=== PATIENT | male | born 1955 | race Caucasian/White ===

== ENCOUNTER → 2019-07-30 | Outpatient (CLI) | payer OTHER | LOC: GMAJ 14:29 | PROVIDERS: ATTEND Family Medicine | DX: M25.559 Pain in unspecified hip (principal) ==

== ENCOUNTER → 2019-10-06 | Outpatient (CLI) | payer MEDICARE, OTHER ==
--- NOTE | 2019-10-07 11:16 | MRI ---
EXAM DESCRIPTION: Cervical Spine: MRI. CLINICAL HISTORY: 63 years Male CERVICAL RADICULOPATHY COMPARISON: None. TECHNIQUE: Multiplanar, high-field MRI, multiple sequences, non-contrast Cervical spine. FINDINGS: C3-C4: Disc desiccation and moderate disc space loss. Minimal anterior and posterior bulging, touching the anterior cord. Bilateral uncinate spurs. Mild bilateral facet arthrosis. Moderate right neural foraminal narrowing and left neural foraminal stenosis. C4-C5: Disc desiccation and moderate disc space loss with anterior bulging and endplate ridging. Grade 1 retrolisthesis. Posterior disc bulge not touching the cord. Bilateral uncinate spurs. Posterior ligament thickening. Moderate left neural foraminal narrowing and right neural foraminal stenosis. Moderate canal narrowing. Bilateral facets are unremarkable. C5-C6: Disc desiccation with disc space maintained. 2 mm anterolisthesis. Bilateral mild neural foraminal narrowing. Facet joints unremarkable. Mild canal narrowing. C6-C7: Disc desiccation anterior bulging and endplate ridging. Anterior more than posterior disc space narrowing. Posterior left paracentral disc protrusion impressing on the left ventral cord. Abutting the left C7 nerve. Bilateral small uncinate spurs. Mild right neural foraminal narrowing moderate on the left. Facet joints negative. T1-T2: Disc desiccation and minimal disc space loss. Endplate reactive changes to the left of midline. Posterior broad-based disc bulge but not touching the cord. Bilateral mild facet arthrosis. Mild bilateral neural foraminal narrowing. Normal signal in the C2-C3 and C7-T1 discs with no bulging. Disc spaces preserved. Canal and neural foramina are patent. Facet joints negative. Spinal alignment kyphosis at C5-6-7.. No cord compression or cord edema. Atlantoaxial joint mild arthrosis.. Base of the cerebellar tonsils is above the foramen magnum. Paravertebral soft tissues negative. Vertebral bodies are not compressed at any level. Otherwise normal marrow signal in the remaining vertebral bodies and the posterior elements. Posterior disc bulging at T2-T3 and T3-T4 with disc space loss. IMPRESSION: 1. Multiple levels of disc desiccation and disc space loss. Anterolisthesis and posterior listhesis. Hypertrophic facet arthrosis at multiple levels. 2. Moderate right neural foraminal narrowing at C3-C4. 3. Grade 1 retrolisthesis C4-C5. Right neural foraminal stenosis. Posterior disc bulge. Correlate for right C5 radiculopathy. 4. posterior left paracentral C6-C7 disc protrusion impressing on the left ventral cord and abutting the left C7 nerve. Moderate left neural foraminal narrowing. Electronically signed by: Mk Ballard MD 10/07/2019 11:15 AM [facility]
== END | disposition home or self-care (01) ==
LOC: MRI 11:09
PROVIDERS: ATTEND Neurological Surgery
DX: M54.12 Radiculopathy, cervical region (principal)

== ENCOUNTER → 2019-10-08 | Outpatient (CLI) | payer MEDICARE, OTHER ==
--- NOTE | 2019-10-08 09:50 | MRI ---
EXAM DESCRIPTION: Lumbar Spine w/o Contrast : Magnetic Resonance Imaging. CLINICAL HISTORY: RADICULOPATHY COMPARISON: Cervical spine MRI 06 October 2019. TECHNIQUE: Multiplanar, multiple standard sequences, non contrast MRI, lumbar spine. FINDINGS: L5-S1: The disc is well visualized on axial T2 series 501, image 3. Disc desiccation and minimal disc space loss. Posterior midline bulge. Minimal effusion in the facet joints with ligament thickening. Bilateral shortened pedicles. AP canal diameter 8 mm. L4-L5: Moderate disc space loss with disc desiccation. Schmorl's node inferior L4. Tiny posterior midline bulge. Minimal posterior ligament thickening. Bilaterally shortened pedicles AP canal diameter 9 mm. Moderate to severe left foraminal narrowing and right neural foraminal stenosis. L3-L4: Moderate disc space loss with Schmorl's nodes in the superior and inferior endplates. Minimal anterior bulging. Tiny posterior bulging. Bilateral hypertrophic facet arthrosis and ligament thickening more on the left. Bilateral shortened pedicles. AP canal diameter 1 cm. Moderate right foraminal narrowing and left foraminal stenosis. L2-L3: Moderate spondylosis with superior and inferior endplate irregularities and multiple Schmorl's nodes. Anterior bulging and endplate ridging. Posterior disc osteophyte bulge. Bilateral shortened pedicles. Hypertrophic facet arthrosis and ligament thickening on the left. Mild canal narrowing. Borderline left foraminal stenosis with moderate right foraminal narrowing. L1-L2: Disc desiccation and moderate disc space loss. Multiple Schmorl's nodes superior and inferior endplates. Anterior bulging with endplate ridging and no significant posterior bulging. Minimal ligament thickening. Bilaterally shortened pedicles. Moderate canal narrowing. Bilateral mild foraminal narrowing. T12-L1: Minimal disc space loss posterior with superior and inferior Schmorl's nodes. Anterior bulging and endplate ridging. No posterior bulging. Bilateral ligament thickening. Bilateral pedicle shortening. Mild canal narrowing and mild bilateral foraminal narrowing. Conus terminates at this level. L1 L4 dextroscoliosis Paravertebral soft tissues negative.. Distal cord normal signal and caliber. Otherwise normal marrow signal in the remaining vertebral bodies and the posterior elements. Vertebral bodies are not compressed at any level. IMPRESSION: 1. Multiple levels of facet hypertrophic arthrosis and flavum ligament thickening. Multiple levels of bilateral pedicular shortening which is most likely congenital. Multiple levels of spondylosis and endplate Schmorl's nodes and erosive changes. No disc herniations. 2. Multifactorial mild to moderate canal stenosis at L5-S1. Mild central canal stenosis at L4-L5 with right neural foraminal stenosis. Possible compromise right L4 nerve. 3. Borderline mild central canal stenosis at L3-L4 is multifactorial. Left foraminal stenosis which may be compromising left L3 nerve. 4. Multifactorial mild canal narrowing at L2-L3 with left foraminal stenosis and possible compromise left L2 nerve. Electronically signed by: Mk Ballard MD 10/08/2019 9:48 AM [facility]
== END | disposition home or self-care (01) ==
LOC: MRI 09:00
PROVIDERS: ATTEND Neurological Surgery
DX: M54.12 Radiculopathy, cervical region (principal)

== ENCOUNTER → 2019-12-26 | Outpatient (CLI) | payer MEDICARE, OTHER ==
--- NOTE | 2019-12-29 09:12 | RAD ---
EXAM DESCRIPTION: Cervical Spine, 2-3 Views. CR/DR/XR. CLINICAL HISTORY: 64 years Male CERVICAL RADICULOPATHY COMPARISON: MR cervical spine September 2019. TECHNIQUE: 3 views Lateral image of the entire cervical spine, AP image. Swimmer's view cervicothoracic junction. FINDINGS: Cervical type vertebra: 6 seen on the lateral view and C7 on the AP view. Disk spaces: ACDF C6-C7 but disc space not well visualized. Spondylosis C3-4 and C4-5. Endplate ridging. Facet joints: Bilateral arthrosis C3-4, C4-5, C5-6, and C6-7. Compression deformities: None. Bone Density: Minimally decreased. Alignment: Anatomic. Soft tissues: total shoulder reverse arthroplasty. IMPRESSION: ACDF C6-C7 partially visualized on the AP view not on the lateral view. Spondylosis at multiple levels as well as facet arthrosis. Electronically signed by: Mk Ballard MD 12/29/2019 9:10 AM [facility] [employer]
== END ==
LOC: RAD 12:14
PROVIDERS: ATTEND Neurological Surgery
DX: M54.12 Radiculopathy, cervical region (principal); M47.892 Other spondylosis, cervical region; M46.92 Unspecified inflammatory spondylopathy, cervical region

== ENCOUNTER → 2020-04-29 | Outpatient (CLI) | payer MEDICARE, OTHER ==
--- NOTE | 2020-04-29 14:00 | RAD ---
EXAM DESCRIPTION: Cervical Spine, 2-3 Views CLINICAL HISTORY: 64 years Male, CERVICAL RADICULOPATHY COMPARISON: December 26, 2019 FINDINGS: Two views of the cervical spine were obtained. Previous ACDF at C6-7, only partially visualized on the lateral view but without apparent hardware complication. The C7 body is not well visualized. No vertebral body fracture or acute subluxation. Degenerative disc disease at C3-4 and C4-5. The spinous processes are intact. IMPRESSION: Limited visualization of the cervical spine inferior to the C6 level with postoperative and degenerative changes but no acute cervical spine abnormality. Electronically signed by: Toño Whitfield MD 04/29/2020 1:59 PM CDT
== END ==
LOC: RAD 11:34
PROVIDERS: ATTEND Neurological Surgery
DX: M54.12 Radiculopathy, cervical region (principal); M47.892 Other spondylosis, cervical region; Z98.890 Other specified postprocedural states

== ENCOUNTER → 2020-05-31 | Outpatient (CLI) | payer MEDICARE, OTHER ==
--- NOTE | 2020-05-31 11:53 | MRI ---
EXAM DESCRIPTION: Lumbar Spine w/o Contrast : Magnetic Resonance Imaging. CLINICAL HISTORY: LUMBAR RADICULOPATHY COMPARISON: MRI lumbar spine September 2019. TECHNIQUE: Multiplanar, multiple standard sequences, non contrast MRI, lumbar spine. FINDINGS: L5-S1: The disc is well visualized on axial T2 series 501, image 3. Disc desiccation with disc space maintained. Small concavities in the endplates. Posterior midline disc bulge. Hypertrophic changes in the bilateral facet joints with effusion and posterior flavum ligament (canal elements) bilaterally shortened pedicles. AP canal diameter 8 mm. Moderate to severe right foraminal narrowing and moderate left foraminal narrowing. Stable since the prior study. L4-L5: Disc desiccation with anterior bulging and endplate spurs and mild disc space narrowing. Minimal hypertrophic changes of the canal elements. Small posterior disc bulge. Bilaterally shortened pedicles. AP canal diameter 9 mm. Mild right foraminal stenosis and moderate to severe left foraminal narrowing. No interval change. L3-L4: Disc desiccation and mild to moderate disc space loss. Central endplate concavities. Minimal anterior bulging. Posterior bulging in the midline. Trace anterolisthesis. Hypertrophic changes in the canal elements more on the left. Bilaterally shortened pedicles. AP canal diameter 10 mm. Moderate to severe right foraminal narrowing and left foraminal stenosis. No change from the prior study. L2-L3: Multiple small endplate erosions and moderate reactive changes except for the lateral right disc space. Anterior disc bulge and spurs. Tiny posterior bulge. Minimal hypertrophic changes in the canal elements. Bilateral shortened pedicles. AP canal diameter 12 mm. Moderate right foraminal narrowing and left foraminal stenosis. Stable since the prior study. L1-2: Disc desiccation moderate disc space loss. Schmorl's nodes larger superior endplate and inferior. Anterior disc bulge. Hypertrophic changes canal elements and bilaterally shortened pedicles. AP canal diameter 13 mm. Mild to moderate right foraminal narrowing and mild left foraminal narrowing. Stable since the prior study. T12-L1: Disc desiccation with moderate posterior disc space loss, anterior bulging and spurs. Hyperintense T2 weighted annular fissure right posterior disc margin. Schmorl's node inferior T12 endplate. Hypertrophic changes in the canal elements and bilaterally shortened pedicles. Moderate right foraminal narrowing and mild left foraminal narrowing. Dextroscoliosis L1-L4. Paravertebral soft tissues minimal paravertebral muscle atrophy.. Distal cord normal signal and caliber. Normal marrow signal in the remaining vertebral bodies and the posterior elements. Vertebral bodies are not compressed at any level. IMPRESSION: 1. Multilevel disc desiccation bulging, endplate spondylosis, scoliosis, shortened pedicles, and hypertrophic changes in the posterior flavum ligaments and facet joints. 2. Mild to moderate canal stenosis and moderate to severe right foraminal narrowing at L5-S1 is stable. 3. Mild central canal stenosis is multifactorial at L4-L5. Mild right foraminal stenosis. No interval change. 4. Borderline mild central canal multifactorial stenosis at L3-L4 and with left foraminal stenosis no change from the prior study. 5. Left foraminal stenosis and diffuse spondylosis at L2-L3 is stable since the prior study. 6. Annular fissure in the right posterior disc margin at L1-L2 is new since the prior study. No canal or foraminal stenosis. Electronically signed by: Mk Ballard MD 05/31/2020 11:52 AM CDT
== END ==
LOC: MRI 08:01
PROVIDERS: ATTEND Neurological Surgery
DX: M47.26 Other spondylosis with radiculopathy, lumbar region (principal); M51.36 Other intervertebral disc degeneration, lumbar region; M48.061 Spinal stenosis, lumbar region without neurogenic claudication; M41.9 Scoliosis, unspecified; M95.9 Acquired deformity of musculoskeletal system, unspecified; M24.28 Disorder of ligament, vertebrae; M46.96 Unspecified inflammatory spondylopathy, lumbar region

== ENCOUNTER → 2020-09-17 | Outpatient (CLI) | payer MEDICARE, OTHER ==
--- NOTE | 2020-09-17 09:03 | RAD ---
EXAM DESCRIPTION: Knee,Left Complete CLINICAL HISTORY: 64 years, Male, PAIN COMPARISON: None TECHNIQUE: Four views left knee FINDINGS: Four views left knee demonstrate modest degenerative changes and small joint effusion. No fracture or dislocation is seen. Joint space is maintained. Defect involving the articular surface not apparent. Marginal osteophyte formation noted. No dislocation evident. IMPRESSION: 1. Modest degenerative changes left knee with preserved joint space and mineralization with moderate marginal osteophyte formation and small effusion. Electronically signed by: Hernan Up MD 09/17/2020 9:01 AM CDT
--- NOTE | 2020-09-17 09:04 | RAD ---
EXAM DESCRIPTION: Knee,Right Complete CLINICAL HISTORY: 64 years, Male, PAIN COMPARISON: None TECHNIQUE: Four views right knee FINDINGS: Four views right knee demonstrate marginal osteophyte formation. Minimal joint effusion suggested in the suprapatellar bursa. Joint space maintained. No fracture or deformity or dislocation noted. IMPRESSION: 1. Mild degenerative changes right knee with preserved joint space and moderate marginal osteophyte formation and small joint effusion. Electronically signed by: Hernan Up MD 09/17/2020 9:02 AM CDT
--- NOTE | 2020-09-17 09:05 | RAD ---
EXAM DESCRIPTION: Pelvis CLINICAL HISTORY: 64 years Male, PAIN COMPARISON: None. FINDINGS: Single view of the pelvis demonstrates modest osteopenia. Each hip joint well preserved with mild marginal osteophyte formation. No osteonecrosis fracture or dislocation. No hip deformity noted. Bony pelvic ring is intact with no soft tissue masses evident. IMPRESSION: Essentially negative pelvis one view with intact hips bilaterally. Electronically signed by: Hernan Up MD 09/17/2020 9:04 AM CDT
== END ==
LOC: RAD 08:24
PROVIDERS: ATTEND Orthopaedic Surgery
DX: M17.0 Bilateral primary osteoarthritis of knee (principal); M25.461 Effusion, right knee; M25.462 Effusion, left knee; M25.761 Osteophyte, right knee; M25.762 Osteophyte, left knee; M25.551 Pain in right hip; M25.552 Pain in left hip